=== PATIENT | male | born 1980 | race African-American/Black ===

== ENCOUNTER 2017-10-19 20:44 | Emergency (ER) | payer SELFPAY ==
[~2017-10-19] VITALS: Ht 175.3 cm; Wt 89.8 kg
[2017-10-19] MEDS ORDERED: DIPHENHYDRAMINE25 M1 ORAL (21:41)
[2017-10-19] MEDS ORDERED: KEFLEX500 MG ORAL (21:41)
[2017-10-19] MEDS ORDERED: LOTRIMIN AF133 GM TOPIC (21:41)
[2017-10-19 23:40] VITALS: BP 140/87
--- NOTE | 2017-10-19 23:47 | Emergency Room Report ---
History of Present Illness General Chief Complaint: Skin Rash/Abscess Source: Patient Present Illness HPI 36-year-old male presents ED complaining of rash to his abdomen and legs. Has been there for many weeks now but is getting worse. States it is very itchy. Denies any pain. Denies any fevers or chills. Denies sick contacts or recent travel. States he's been using new detergent. tried OTC steroid cream which says made it worse. Denies any known food or drug allergies. No other aggravating relieving factors. Denies any other associated symptoms Allergies: Coded Allergies: No Known Allergies (Unverified , 10/19/17) Patient History Past Medical History: none Past Surgical History: none Pertinent Family History: none Social History: Denies: smoking, alcohol use, drug use Immunizations: UTD Reviewed Nursing Documentation: PMH: Agreed, PSxH: Agreed Nursing Documentation-PMH Past Medical History: No Stated History Review of Systems All Other Systems: negative except mentioned in HPI Physical Exam Vital Signs Date Time Temp Pulse Resp B/P (MAP) Pulse Ox O2 Delivery O2 Flow Rate FiO2 10/19/17 21:23 98.2 68 16 140/87 99 Room Air Sp02 EP Interpretation: reviewed, normal General Appearance: no apparent distress, alert, GCS 15, non-toxic Head: normocephalic Eyes: bilateral eye normal inspection, bilateral eye PERRL ENT: normal ENT inspection Neck: normal inspection Respiratory: normal inspection Cardiovascular #1: normal inspection Gastrointestinal: normal inspection Rectal: deferred Genitourinary: no CVA tenderness Musculoskeletal: normal inspection Neurologic: alert, oriented x3, responsive, motor strength/tone normal, sensory intact, speech normal Psychiatric: normal inspection Skin: rash - diffuse rash with raised edges and central clearing. mildly erythematous Lymphatic: normal inspection Medical Decision Making Diagnostic Impression: Primary Impression: Rash and other nonspecific skin eruption ER Course Hospital Course 36-year-old male presents to ED with rash to abdomen, legs Differential diagnoses include: Cellulitis, dermatitis, insect bite, abscess Clinical course Patient placed on stretcher. After initial history, physical exam reveals a male in no acute distress. On exam there is a diffuse rash noted to the abdomen and legs. raised edges with central clearing. Mildly erythematous Consistent with a ringworm possible bacterial superinfection. Will prescribe antifungal topical as well as antibiotics Diagnosis - rash stable and discharged to home with prescription for Ketoconazole spray, keflex, benedryl. Instructed to followup with PMD. Instructed return to ED if symptoms recur or worsen Last Vital Signs Date Time Temp Pulse Resp B/P (MAP) Pulse Ox O2 Delivery O2 Flow Rate FiO2 10/19/17 21:23 98.2 68 16 140/87 99 Room Air Status: improved Disposition: HOME, SELF-CARE Condition: Stable Scripts Miconazole Nitrate (LOTRIMIN AF) 133 Gm Aero.powd 1 APPLIC TOPIC BID, #133 GM Prov: JUAN ALBERTO MENDOZA M.D. 10/19/17 Cephalexin* (KEFLEX*) 500 Mg Capsule 500 MG ORAL Q6H, #28 CAP 0 Refills Prov: JUAN ALBERTO MENDOZA M.D. 10/19/17 Diphenhydramine Hcl* (DIPHENHYDRAMINE HCL*) 25 Mg Capsule 25 MG ORAL Q6H Y for Itching, #30 CAP 0 Refills Prov: JUAN ALBERTO MENDOZA M.D. 10/19/17 Referrals: NOT CHOSEN JACKLYN/,REFERRING (PCP) Patient Instructions: JUAN ALBERTO Lawton M.D. Oct 19, 2017 23:47
== END 2017-10-19 21:45 | disposition home or self-care (01) ==
LOC: EMR 21:15
DX: R21 Rash and other nonspecific skin eruption (principal)
CPT/HCPCS: 99283